=== PATIENT | female | born 1960 | race Caucasian/White ===

== ENCOUNTER 2019-02-15 14:44 | Inpatient (IN) | payer MEDICAID ==
--- NOTE | 2019-02-15 15:16 | EDM.PDOC ---
ED HPI GENERAL MEDICAL PROBLEM - General Chief Complaint: Diabetic Complaint Stated Complaint: BLOOD SUGAR 591 Time Seen by Provider: 02/15/19 15:09 Source of Information: Reports: Patient History Limitations: Reports: No Limitations - History of Present Illness INITIAL COMMENTS - FREE TEXT/NARRATIVE: 58-year-old female presents to the ED after discovering that her blood sugar was 591 when a friend tested her blood sugar. Patient reports that she's been symptomatic with excessive thirst polyuria and polydipsia for the last 3 weeks. She estimates a 10 pound weight loss but is not exactly sure of this. She does feel weak and lightheaded and very fatigued. ABDs does run in her family. She has not had a checkup for about 5 years but when last checked she had no signs of diabetes. Patient has no known heart or lung disorder. He smokes one pack of cigarettes per day. She has noticed some drainage from a dental abscess left frontal incisor tooth that is broken off. This is been draining off off and on for the last 3 weeks as well. She has some sores on her face as well that are slow to heal i.e. impetigo-like. Onset: Gradual Onset Date: 01/25/19 (She estimates polyuria and polydipsia symptoms for at least 3 weeks.) Duration: Week(s): Location: Reports: Generalized (Symptoms of polyuria or polydipsia for about 3 weeks with fatigue and perhaps as much as a 10 pound weight loss.) Quality: Reports: Other (Polyuria polydipsia for at least 3 weeks. Draining dental abscess left upper second incisor tooth which is broken off) Severity: Moderate (.) Improves with: Reports: None Worsens with: Reports: None Context: Reports: Other (Signs and symptoms of diabetes for the last 3 weeks). Denies: Activity, Exercise, Lifting, Sick Contact, Trauma Associated Symptoms: Reports: Malaise, Nausea/Vomiting, Weakness. 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 ED ROS GENERAL - Review of Systems Review Of Systems: See Below Constitutional: Reports: Malaise, Weakness, Fatigue, Weight Loss (She estimates 10 pounds in about 3 weeks.). Denies: Fever, Chills HEENT: Reports: Dental Pain (Draining from a dental abscess left upper second incisor tooth which is broken off even with the gingiva margin.), Glasses Respiratory: Reports: Shortness of Breath, Cough. Denies: Wheezing, Pleuritic Chest Pain (Mild dyspnea at times), Sputum (Occasional nonproductive cough), Hemoptysis Cardiovascular: Reports: Blood Pressure Problem, Dyspnea on Exertion. Denies: Chest Pain, Claudication (Not to her knowledge although blood pressure is very high when she was first seen in the ED at 179/109.), Edema, Lightheadedness, Orthopnea, Palpitations (Occasionally) Endocrine: Reports: Fatigue, High Glucose (High glucose discovered today at a friend's house who has diabetes and a new monitor. Blood sugar was estimated to be 591.) GI/Abdominal: Reports: Nausea (Occasional mild nausea.) : Reports: Frequency Musculoskeletal: Reports: No Symptoms Skin: Reports: Other (Has sores on her chin that or not healing very well. Drinking from a dental abscess left upper incisor tooth.) Neurological: Reports: Dizziness, Weakness. Denies: Headache, Numbness, Paresthesia, Pre-Existing Deficit, Seizure (Generalized weakness), Syncope, Tingling, Tremors, Trouble Speaking, Difficulty Walking, Change in Speech Psychiatric: Reports: No Symptoms Hematologic/Lymphatic: Reports: No Symptoms Immunologic: Reports: No Symptoms ED EXAM GENERAL NO PERIP PULSE - Physical Exam Exam: See Below Exam Limited By: No Limitations General Appearance: Alert, WD/WN, Anxious, Other (Vital signs reveal a resting tachycardia of 1 29/m. Afebrile respiratory rate of 20/m blood pressure markedly elevated at 170 04/26/09. Sats are 97% on room air. She is mildly anxious ) Eye Exam: Bilateral Eye: Normal Fundi, Normal Inspection, PERRL Ears: Normal TMs Throat/Mouth: Other (Tongue is dry and slightly coated whitish in color questionable candidiasis. She has drainage from a broken off left upper middle incisor tooth compatible with dental infection.) Head: Atraumatic, Normocephalic Neck: Normal Inspection, Supple, Non-Tender, Full Range of Motion. No: Lymphadenopathy (R) Respiratory/Chest: No Respiratory Distress, Lungs Clear, Normal Breath Sounds, No Accessory Muscle Use Cardiovascular: Normal Peripheral Pulses, No Murmur, No Rub, Tachycardia GI/Abdominal: Normal Bowel Sounds (Resting tachycardia of 1 25/m on my exam), Soft, Non-Tender, No Organomegaly, No Mass, Pelvis Stable, Other (Mildly obese.) Back Exam: Normal Inspection, Full Range of Motion. No: CVA Tenderness (L), CVA Tenderness (R) Extremities: Normal Inspection, Normal Range of Motion, Non-Tender, No Pedal Edema Neurological: Alert, Oriented, CN II-XII Intact, Normal Cognition, Normal Gait, No Motor/Sensory Deficits Psychiatric: Anxious Skin Exam: Warm, Dry (Mildly anxious), Intact, Normal Color, Other (Impetigo- like rash on both sides of her chin. This may also be due to picking.) EKG INTERPRETATION EKG Date: 02/15/19 Time: 15:40 Rhythm: Other (Sinus tachycardia) Rate (Beats/Min): 125 [place]: LAD-Left [place] Deviation (Mild left axis deviation of -2) P-Wave: Enlarged (Consider left atrial hypertrophy) QRS: Other (Initial poor R-wave progression with slightly diminished voltage in the precordial leads.) ST-T: Other (T-wave inversion aVL and 1 nonspecific finding) QT: Prolonged (QTC is mildly prolonged) EKG Interpretation Comments: Abnormal ECG Course - Vital Signs Last Recorded V/S: Last Vital Signs Temp 36.6 C 02/15/19 15:03 Pulse 129 H 02/15/19 15:03 Resp 20 02/15/19 15:03 BP 179/109 H 02/15/19 15:03 Pulse Ox 97 02/15/19 15:03 - Orders/Labs/Meds Orders: Active Orders 24 hr Category Date Time Status Admission Status [Patient Status] [ADT] Routine ADT 02/15/19 17:09 Active Blood Glucose Check, Bedside [RC] Q1HR Care 02/15/19 15:17 Active EKG Documentation Completion [RC] STAT Care 02/15/19 15:17 Active Chest 1V Frontal [CR] Stat Exams 02/15/19 15:17 Taken C-REACTIVE PROTEIN [CHEM] Stat Lab 02/15/19 15:40 Results COMPREHENSIVE METABOLIC PN,CMP [CHEM] Stat Lab 02/15/19 15:40 Results MAGNESIUM [CHEM] Stat Lab 02/15/19 15:40 Results OSMOLALITY,SERUM [CHEM] Stat Lab 02/15/19 15:40 Results TROPONIN I [CHEM] Stat Lab 02/15/19 15:40 Results Insulin Regular, Human [HumuLIN R] 100 unit Med 02/15/19 16:30 Active Sodium Chloride 0.9% [Normal Saline] 99 ml IV ASDIRECTED Medication Orders Insulin Human Regular 100 unit (/ Sodium Chloride) 100 mls @ 4 mls/hr IV ASDIRECTED INOCENCIA; Protocol Last Infusion: 02/15/19 19:23 Dose: 4 unit/hr, 4 mls/hr Infusion: 02/15/19 18:20 Dose: 2 unit/hr, 2 mls/hr Admin: 02/15/19 16:32 Dose: 4 unit/hr, 4 mls/hr Potassium Chloride/Dextrose/Sod Cl (D5 1/2 Ns W/ 20 Meq/L Kcl) 1,000 mls @ 125 mls/hr IV ASDIRECTED INOCENCIA Last Admin: 02/15/19 19:25 Dose: 125 mls/hr Nicotine (Habitrol) 14 mg TRDERM DAILY [facility] Nicotine Polacrilex (Nicorelief) 2 mg CHEW Q2H PRN PRN Reason: Withdrawal Symptoms Labs: Laboratory Tests 02/15/19 02/15/19 02/15/19 Range/Units 15:40 15:40 15:40 WBC 7.85 (3.98-10.04) K/mm3 RBC 5.72 H (3.98-5.22) M/mm3 Hgb 16.5 H (11.2-15.7) gm/L Hct 47.7 H (34.1-44.9) % MCV 83.4 (79.4-94.8) fl MCH 28.8 (25.6-32.2) pg MCHC 34.6 (32.2-35.5) g/dl RDW Std Deviation 38.9 (36.4-46.3) fL Plt Count 347 (182-369) K/mm3 MPV 10.7 (9.4-12.3) fl Neutrophils % (Manual) 63 H (40-60) % Band Neutrophils % 0 (0-10) % Lymphocytes % (Manual) 30 (20-40) % Atypical Lymphs % 0 % Monocytes % (Manual) 5 (2-10) % Eosinophils % (Manual) 1 (0.7-5.8) % Basophils % (Manual) 1 (0.1-1.2) Platelet Estimate Adequate RBC Morph Comment Normal Sodium 127 L (136-145) mEq/L Potassium 4.7 (3.5-5.1) mEq/L Chloride 90 L (98-107) mEq/L Carbon Dioxide 19 L (21-32) mEq/L Anion Gap 22.7 H (5-15) BUN 15 (7-18) mg/dL Creatinine 1.0 (0.55-1.02) mg/dL Est Cr Clr Drug Dosing 49.68 mL/min Estimated GFR (MDRD) 57 (>60) mL/min BUN/Creatinine Ratio 15.0 (14-18) Glucose 639 H* (74-106) mg/dL Hemoglobin A1c Cancelled Calcium 10.0 (8.5-10.1) mg/dL Magnesium 1.8 (1.8-2.4) mg/dl Total Bilirubin 0.4 (0.2-1.0) mg/dL AST 19 (15-37) U/L ALT 37 (14-59) U/L Alkaline Phosphatase 237 H (46-116) U/L Troponin I < 0.017 (0.00-0.056) ng/mL C-Reactive Protein < 0.2 (<1.0) mg/dL NT-Pro-B Natriuret Pep (0-125) pg/mL Total Protein 7.7 (6.4-8.2) g/dl Albumin 3.6 (3.4-5.0) g/dl Globulin 4.1 gm/dL Albumin/Globulin Ratio 0.9 L (1-2) Ketones (0.0-0.3) mM 02/15/19 02/15/19 02/15/19 Range/Units 15:40 15:40 17:45 WBC (3.98-10.04) K/mm3 RBC (3.98-5.22) M/mm3 Hgb (11.2-15.7) gm/L Hct (34.1-44.9) % MCV (79.4-94.8) fl MCH (25.6-32.2) pg MCHC (32.2-35.5) g/dl RDW Std Deviation (36.4-46.3) fL Plt Count (182-369) K/mm3 MPV (9.4-12.3) fl Neutrophils % (Manual) (40-60) % Band Neutrophils % (0-10) % Lymphocytes % (Manual) (20-40) % Atypical Lymphs % % Monocytes % (Manual) (2-10) % Eosinophils % (Manual) (0.7-5.8) % Basophils % (Manual) (0.1-1.2) Platelet Estimate RBC Morph Comment Sodium (136-145) mEq/L Potassium (3.5-5.1) mEq/L Chloride (98-107) mEq/L Carbon Dioxide (21-32) mEq/L Anion Gap (5-15) BUN (7-18) mg/dL Creatinine (0.55-1.02) mg/dL Est Cr Clr Drug Dosing mL/min Estimated GFR (MDRD) (>60) mL/min BUN/Creatinine Ratio (14-18) Glucose 379 H (74-106) mg/dL Hemoglobin A1c Calcium (8.5-10.1) mg/dL Magnesium (1.8-2.4) mg/dl Total Bilirubin (0.2-1.0) mg/dL AST (15-37) U/L ALT (14-59) U/L Alkaline Phosphatase (46-116) U/L Troponin I (0.00-0.056) ng/mL C-Reactive Protein (<1.0) mg/dL NT-Pro-B Natriuret Pep 39 (0-125) pg/mL Total Protein (6.4-8.2) g/dl Albumin (3.4-5.0) g/dl Globulin gm/dL Albumin/Globulin Ratio (1-2) Ketones 2.74 (0.0-0.3) mM Meds: Medications Generic Name Dose Route Start Last Admin Trade Name Ranjit PRN Reason Stop Dose Admin Insulin Human Regular 100 unit 100 mls @ 4 mls/hr 02/15/19 16:30 02/15/19 19: 23 / Sodium Chloride IV 4 unit/hr ASDIRECTED INOCENCIA 4 mls/hr Infusion Protocol 4 UNIT/HR Potassium Chloride/Dextrose/Sod Cl 1,000 mls @ 125 mls/hr 02/15/19 19:15 19:25 D5 1/2 Ns W/ 20 Meq/L Kcl IV 125 mls/hr ASDIRECTED INOCENCIA Administration Nicotine 14 mg 02/15/19 19:30 Habitrol TRDERM DAILY INOCENCIA Nicotine Polacrilex 2 mg 02/15/19 19:20 Nicorelief CHEW Q2H PRN Withdrawal Symptoms Discontinued Medications Generic Name Dose Route Start Last Admin Trade Name Freella PRN Reason Stop Dose Admin Sodium Chloride 1,000 mls @ 999 mls/hr 02/15/19 15:30 02/15/19 15:45 Normal Saline IV 999 mls/hr ASDIRECTED INOCENCIA Administration Sodium Chloride 1,000 mls @ 999 mls/hr 02/15/19 16:53 02/15/19 16:56 Normal Saline IV 02/15/19 17:53 999 mls/hr ONETIME ONE Administration - Radiology Interpretation Free Text/Narrative:: 58-year-old female presents to the ED for evaluation of a elevated blood sugar obtained by a friend. Patient has had signs and symptoms of diabetes for about 3 weeks with polyuria and polydipsia. Perhaps a 10 pound weight loss. Her friend who is a long-term diabetic checked her sugar this afternoon and found to be 591. Was only checked once. She thus was advised of course to attend the hospital. Clinically she has all the signs and symptoms of diabetes. She also reports it runs in her family on the mother's side. She does have a draining dental abscess of the middle incisor tooth left upper. No fever at this time. She has 2 nonhealing superficial ulcerated skin lesions on her chin compatible with impetigo-like lesions. Plan confirmation of elevated blood sugar. Glycosylated protein. Serum ketones and serum osmolality as well as routine labs. ECG and a chest x-ray as she is a smoker. IV will be normal saline at open for now. Once her sugar is identified to be elevated ,insulin drip will be instituted. - Re-Assessments/Exams Free Text/Narrative Re-Assessment/Exam: 02/15/19 16:20 Hematology is back with a total white count of 7.85. Differential shows 63% neutrophils and no band cells. Hemoglobin is 16.5 hematocrit of 47.7 suggesting mild hemoconcentration. Platelet count 347,000. Nurses got blood sugar greater than 400 at the bedside. I'm going to start the patient on insulin drip at 4 units an hour. 02/15/19 17:02 Chemistry is now back revealing hyponatremia with a sodium of 127. Potassium is 4.7. Chloride is low at 90. Bicarbonate is 19 and a gap is 22.7. BUN is 15 with a creatinine of 1.0. Estimated GFR is 57. Glucose is 639. Hemoglobin A1c is 10.90. Serum osmolality is pending. Calcium is 10.0 with a magnesium of 1.8. Total bilirubin 0.4 AST 19 ALT of 37. Phosphatase 237 I elevated. Troponin I is less than 0.017. C-reactive protein is less than 0.2. Total protein 7.7 with an albumin fraction of 3.6. Serum ketones are elevated at 2.74. Second liter of normal saline has been started at open. Chest x-ray done portably reveals poor inspirational effort. Cardiac silhouette appears to be within normal size and limits. Diffuse mild vascular congestion pattern likely due to portable technique and poor inspirational film. Patient will need to be admitted to the intensive care unit for continued insulin infusion and rehydration due to type 2 diabetes with ketosis. Pineda will be discussed with on- call hospitalist Dr. Yeager with a view to admission to the ICU. 02/15/19 18:18 blood sugar is reportedly down to 349. At the bedside it was greater than 400 and therefore test was done by Lab. Sugar is dropping a bit too fast. Will reduce insulin drip to [address] Yeager is here and arranging admission to the ICU. Departure - Departure Time of Disposition: 19:27 Disposition: Admitted As Inpatient 68 Condition: Fair Clinical Impression: Hyperglycemia Type 2 diabetes mellitus Qualifiers: Diabetes mellitus ferry terminal agent insulin use: without ferry terminal agent use Diabetes mellitus complication status: with skin complications Diabetes mellitus complication detail: with dermatitis Qualified Code(s): E11.620 - Type 2 diabetes mellitus with diabetic dermatitis - Discharge Information *PRESCRIPTION DRUG MONITORING PROGRAM REVIEWED*: Not Applicable *COPY OF PRESCRIPTION DRUG MONITORING REPORT IN PATIENT CLARA: Not Applicable - My Orders Last 24 Hours: My Active Orders 02/15/19 15:17 Blood Glucose Check, Bedside [RC] Q1HR EKG Documentation Completion [RC] STAT Chest 1V Frontal [CR] Stat 02/15/19 15:40 C-REACTIVE PROTEIN [CHEM] Stat COMPREHENSIVE METABOLIC PN,CMP [CHEM] Stat MAGNESIUM [CHEM] Stat OSMOLALITY,SERUM [CHEM] Stat TROPONIN I [CHEM] Stat 02/15/19 16:30 Insulin Regular, Human [HumuLIN R] 100 unit Sodium Chloride 0.9% [Normal Saline] 99 ml IV ASDIRECTED 02/15/19 17:09 Admission Status [Patient Status] [ADT] Routine - Assessment/Plan Last 24 Hours: My Active Orders 02/15/19 15:17 Blood Glucose Check, Bedside [RC] Q1HR EKG Documentation Completion [RC] STAT Chest 1V Frontal [CR] Stat 02/15/19 15:40 C-REACTIVE PROTEIN [CHEM] Stat COMPREHENSIVE METABOLIC PN,CMP [CHEM] Stat MAGNESIUM [CHEM] Stat OSMOLALITY,SERUM [CHEM] Stat TROPONIN I [CHEM] Stat 02/15/19 16:30 Insulin Regular, Human [HumuLIN R] 100 unit Sodium Chloride 0.9% [Normal Saline] 99 ml IV ASDIRECTED 02/15/19 17:09 Admission Status [Patient Status] [ADT] Routine
[2019-02-15] MEDS ORDERED: Sodium Chloride 0.9% 1,000 ML IV SCH (15:30)
[2019-02-15] MEDS ORDERED: Sodium Chloride 0.9% 1,000 ML IV ONE (16:53)
[2019-02-15] MEDS ORDERED: D5 1/2 NS w/ 20 mEq/L KCl 1,000 ML IV SCH (19:15)
[2019-02-15] MEDS ORDERED: Nicotine Polacrilex 2 MG Gum CHEW PRN (19:20)
--- NOTE | 2019-02-15 20:34 | HP ---
DATE OF ADMISSION: 02/15/2019 HISTORY OF PRESENT ILLNESS: The patient is a 58-year-old female who presents to the ER with high blood sugar of 591 and not feeling well. She states that she thought something was wrong for the past few days to weeks because she has been drinking like crazy, and she does not normally do this. She has lost about 10 pounds, and she is voiding all the time, probably 5 to 8 times at night. She states she thought she might be having something going on because she was weak and lightheaded, tired, and just not feeling well. She has not been nauseated or vomiting, but she is actually not even eating that much. She has a suspicion of possibly being diabetic, although she has never been told she has this. She last had a physical 4 years ago and she was said to be normal. She smokes a pack of cigarettes per day. She has had some dental problems including an incisor, which is draining. She has also been unable to get rid of some pimples and sores on her face. She has polyuria and polydipsia for the last 3 weeks. The patient relates no chest pain. Denies any shortness of breath. Denies any chills, rigors, sweats, dysuria, frequency. She has no history of hepatitis. She denies any history of drug use to me, but interestingly does have a history of meth use I am told. The patient relates she smokes a pack of cigarettes per day, has for over 35 years, probably 40 years. PAST MEDICAL HISTORY: Remarkable for tubal ligation. The patient does not follow any specific diet. She does not exercise routinely. She loves her granddaughter whom she helps care for on every other weekend, lives with her son. She is originally from [place]. She is not working for apparently a couple of years, reason why is unknown. She denies any history of hypertension, but was noted to have a very high blood pressure on admission 179/109. She has occasional palpitations she told the ER physician, but denied any recent palpitations with me. She has had occasional nausea as well on report, but denies any currently. She thinks her left upper incisor is abscessed. She has pain with that. She has had no previous TIAs, CVAs, acute MIs, renal failure, liver failure, or other cardiovascular events. Initial blood sugar was found to be 591. Initial EKG showed a left axis deviation, atrial hypertrophy, poor R-wave progression, T-wave inversion in aVL, and mild prolonged QTc. She was found to have a tachycardia about 120. Blood pressure initially 179/109, pulse ox 97. Initial lab was unremarkable other than her blood sugars. Her white count was 7.8, hemoglobin 16.5, hematocrit 47.7, platelet count normal. Sodium was 127, potassium 4.7, CO2 was only 19 with an anion gap elevated at 23, creatinine of 1. GFR was calculated at 57 and her glucose was initially 639. Potassium and magnesium were still normal. Liver function tests are normal. Alkaline phosphatase is elevated 237. Troponin was less than 0.017. CRP was less than 0.2. Protein studies were normal. Ketones were found to be 2+ in urine. The patient was started on an insulin drip per protocol. Her serum ketones did return at 2.7. She was initially started on 250 normal saline, an insulin drip at 8 units/hour, then decreased to 4 units/hour when she hit 300. The patient has been transferred to the unit. Currently, she is feeling comfortable. She was examined in the ER. The patient is almost finished with her second liter of normal saline. Chest x-ray has been reviewed in the meantime and this shows some mild vascular congestion. Blood sugar repeated at 1818 hours was 349. Her insulin drip was decreased further to 2 units/hour. PHYSICAL EXAMINATION: GENERAL: Shows a pleasant female in no obvious distress. Appears moderately obese. She is not sweating or diaphoretic. There is no obvious ketosis. HEENT: Remarkable for carious teeth multiple. Some enlargement of the tongue. Palate is Mallampati 3. Left upper incisor as noted is grayish with broken off fractured point. There is obvious caries to the root level with gum hyperemia. Other teeth are also carious. NECK: Thyroid is slightly enlarged, somewhat asymmetric, lumpy, right side being a little bit larger than the left, but no dominant nodule appreciated. The patient has no tremor. LUNG: Sounds are clear and equal. CARDIAC: Shows normal S1 and S2 without murmur, S3, or S4. There is no hyperdynamic precordium. Carotid pulses are 1+. Femoral pulses 1+. ABDOMEN: Benign for any tenderness. There are active bowel sounds. No scars are noted. She has no CVA tenderness. EXTREMITIES: Unremarkable other than trace edema of the ankles. Reflexes are present. The patient has no obvious pain. On palpation, has minimal arthritic findings of shoulders and knees. NEUROLOGIC: Grossly intact. The patient is clearly oriented. She is able to answer questions. The patient states that again she suspected she was becoming diabetic. She denies any previous cardiovascular symptoms, any previous strokes, pulmonary emboli, DVT. She denies any previous episodes of diabetes, but states her mother and her grandmother were also type 2 diabetics. Her mom progressed rapidly to insulin after about 6 months. She was diagnosed in her 50s. This is why she thought she would become diabetic. The patient would like to quit smoking and so we have discussed the patch and this is certainly agreeable. We will also provide government counseling. The patient's motivations are for own health, not to be a burden on her son, improve her health, and also to improve her health because of her granddaughter. EKG was over-read with Dr. Lacy's interpretation being entirely spot on. ASSESSMENT: A 58-year-old female presenting in: 1. Diabetic ketoacidosis. 2. History of carious teeth. This may be contributing. 3. Extreme hypertension on presentation, now improved. 4. Obvious metabolic acidosis with increased anion gap suggesting ketosis as a cause. 5. Abnormalities on EKG suggesting possible coronary artery disease with left axis deviation, left atrial enlargement, and nonspecific ST-T wave changes. Negative troponin on presentation. PLAN: The patient will be admitted for insulin drip therapy per protocol to the ICU. We will continue to monitor for any causative triggers. She has had her blood culture drawn. The patient will need to see dentist at some point, as I am unclear as to whether this could be causing problems. Consider antibiotic treatment of her abscessed incisor, although it is not causing her severe pain and is not obviously purulent at this point. It is hyperemic chronic gums and it does appear to be a bad cavity, possibly abscess. Her focus will initially be on treating the diabetes. She will be started on insulin drip protocol and she has already come down significantly and we will start to transition her toward bolus insulin. Diabetic Education will be consulted. Nutritionists will be consulted. Physical Therapy and OT will be consulted. Nicotine patch applied per patient request for smoking cessation assistance. Contact smoking cessation nurse. MMODAL /[phone]
[2019-02-15] MEDS: Nicotine 14 MG/24 Hr Patch TRDERM SCH (21:03)
[2019-02-15] MEDS: Enoxaparin 40 MG/0.4 ML Syringe SUBCUT SCH (22:10)
[2019-02-15] MEDS: Potassium Chloride 10 MEQ in Premix Bag 1 BAG IV SCH ×2 (22:11→23:12)
[2019-02-15] MEDS: Losartan 100 MG Tab PO SCH (22:11)
[2019-02-16] MEDS: Potassium Chloride 10 MEQ in Premix Bag 1 BAG IV SCH ×2 (00:12→01:18)
[2019-02-16] MEDS ORDERED: Insulin Glarg,Human.Rec.Analog 100 UNIT/ML ML SUBCUT ONE (00:20)
[2019-02-16] MEDS ORDERED: Sodium Chloride 0.9% 1,000 ML IV SCH (00:20)
[2019-02-16] MEDS ORDERED: Insulin Lispro 100 Units/ML 3 ML Vial SUBCUT ONE ×2 (02:00)
[2019-02-16 04:36] LABS: HEMOGLOBIN A1C 12.5 % (4.50-6.20)
[2019-02-16] MEDS ORDERED: Magnesium Sulfate/Water 4 GM in Premix Bag 1 BAG IV ONE (07:49)
[2019-02-16] MEDS: metFORMIN 500 MG Tab PO SCH ×2 (07:53→16:41)
[2019-02-16] MEDS: Insulin Lispro 100 Units/ML 3 ML Vial SUBCUT SCH ×5 (07:55→21:34)
[2019-02-16] MEDS: Losartan 100 MG Tab PO SCH ×2 (07:57→08:12)
[2019-02-16] MEDS: Enoxaparin 40 MG/0.4 ML Syringe SUBCUT SCH (08:02)
[2019-02-16] MEDS: Nicotine 14 MG/24 Hr Patch TRDERM SCH (08:07)
--- NOTE | 2019-02-16 11:18 | CR ---
Chest: Portable view of the chest was obtained. Comparison: No prior chest x-ray. Heart size and mediastinum are normal. Lungs are clear. Bony structures are grossly intact. Impression: 1. Nothing acute is seen on portable chest x-ray. Diagnostic code #1
--- NOTE | 2019-02-16 13:47 | PCM.PN ---
- General Info Date of Service: 02/16/19 Admission Dx/Problem (Free Text): patient states that she is feeling much better. Insulin drip was stopped last night and she was given subcutaneous Lantus. Patient is doing well taking orally now. She started Glucophage 500 mg 1 tab twice a day. She continues on sliding scale. Functional Status: Reports: Pain Controlled - Review of Systems General: Reports: No Symptoms HEENT: Reports: No Symptoms Pulmonary: Reports: No Symptoms Cardiovascular: Reports: No Symptoms Genitourinary: Denies: Dysuria, Frequency - Patient Data Vitals - Most Recent: Last Vital Signs Temp 97.5 F 02/16/19 11:43 Pulse 98 02/16/19 07:54 Resp 16 02/16/19 11:43 BP 134/81 02/16/19 11:43 Pulse Ox 95 02/16/19 11:43 Weight - Most Recent: 164 lb 11.212 oz I&O - Last 24 Hours: Intake & Output 02/15/19 02/16/19 02/16/19 22:59 06:59 14:59 Intake Total 120 1431 490 Output Total 035 508 9900 Balance -80 631 -1210 Lab Results Last 24 Hours: Laboratory Results - last 24 hr 02/15/19 02/15/19 02/15/19 Range/Units 15:40 15:40 15:40 WBC 7.85 (3.98-10.04) K/mm3 RBC 5.72 H (3.98-5.22) M/mm3 Hgb 16.5 H (11.2-15.7) gm/L Hct 47.7 H (34.1-44.9) % MCV 83.4 (79.4-94.8) fl MCH 28.8 (25.6-32.2) pg MCHC 34.6 (32.2-35.5) g/dl RDW Std Deviation 38.9 (36.4-46.3) fL Plt Count 347 (182-369) K/mm3 MPV 10.7 (9.4-12.3) fl Neutrophils % (Manual) 63 H (40-60) % Band Neutrophils % 0 (0-10) % Lymphocytes % (Manual) 30 (20-40) % Atypical Lymphs % 0 % Monocytes % (Manual) 5 (2-10) % Eosinophils % (Manual) 1 (0.7-5.8) % Basophils % (Manual) 1 (0.1-1.2) Platelet Estimate Adequate RBC Morph Comment Normal Sodium 127 L (136-145) mEq/L Potassium 4.7 (3.5-5.1) mEq/L Chloride 90 L (98-107) mEq/L Carbon Dioxide 19 L (21-32) mEq/L Anion Gap 22.7 H (5-15) BUN 15 (7-18) mg/dL Creatinine 1.0 (0.55-1.02) mg/dL Est Cr Clr Drug Dosing 49.68 mL/min Estimated GFR (MDRD) 57 (>60) mL/min BUN/Creatinine Ratio 15.0 (14-18) Glucose 639 H* (74-106) mg/dL POC Glucose (70-105) mg/dL Hemoglobin A1c Cancelled Serum Osmolality 307 H (280-300) mosm/kg Calcium 10.0 (8.5-10.1) mg/dL Magnesium 1.8 (1.8-2.4) mg/dl Total Bilirubin 0.4 (0.2-1.0) mg/dL AST 19 (15-37) U/L ALT 37 (14-59) U/L Alkaline Phosphatase 237 H (46-116) U/L Troponin I < 0.017 (0.00-0.056) ng/mL C-Reactive Protein < 0.2 (<1.0) mg/dL NT-Pro-B Natriuret Pep (0-125) pg/mL Total Protein 7.7 (6.4-8.2) g/dl Albumin 3.6 (3.4-5.0) g/dl Globulin 4.1 gm/dL Albumin/Globulin Ratio 0.9 L (1-2) TSH 3rd Generation (0.358-3.74) uIU/mL Urine Color (Yellow) Urine Appearance (Clear) Urine pH (5.0-8.0) Ur Specific [place] (1.005-1.030) Urine Protein (Negative) Urine Glucose (UA) (Negative) Urine Ketones (Negative) Urine Occult Blood (Negative) Urine Nitrite (Negative) Urine Bilirubin (Negative) Urine Urobilinogen (0.2-1.0) Ur Leukocyte Esterase (Negative) Urine RBC (0-5) /hpf Urine WBC (0-5) /hpf Ur Squamous Epith Cells (0-5) /hpf Urine Bacteria (FEW) /hpf Urine Mucus (FEW) /hpf Urine Yeast (Budding) (NOT SEEN) Ketones (0.0-0.3) mM 02/15/19 02/15/19 02/15/19 Range/Units 15:40 15:40 16:00 WBC (3.98-10.04) K/mm3 RBC (3.98-5.22) M/mm3 Hgb (11.2-15.7) gm/L Hct (34.1-44.9) % MCV (79.4-94.8) fl MCH (25.6-32.2) pg MCHC (32.2-35.5) g/dl RDW Std Deviation (36.4-46.3) fL Plt Count (182-369) K/mm3 MPV (9.4-12.3) fl Neutrophils % (Manual) (40-60) % Band Neutrophils % (0-10) % Lymphocytes % (Manual) (20-40) % Atypical Lymphs % % Monocytes % (Manual) (2-10) % Eosinophils % (Manual) (0.7-5.8) % Basophils % (Manual) (0.1-1.2) Platelet Estimate RBC Morph Comment Sodium (136-145) mEq/L Potassium (3.5-5.1) mEq/L Chloride (98-107) mEq/L Carbon Dioxide (21-32) mEq/L Anion Gap (5-15) BUN (7-18) mg/dL Creatinine (0.55-1.02) mg/dL Est Cr Clr Drug Dosing mL/min Estimated GFR (MDRD) (>60) mL/min BUN/Creatinine Ratio (14-18) Glucose (74-106) mg/dL POC Glucose (70-105) mg/dL Hemoglobin A1c Serum Osmolality (280-300) mosm/kg Calcium (8.5-10.1) mg/dL Magnesium (1.8-2.4) mg/dl Total Bilirubin (0.2-1.0) mg/dL AST (15-37) U/L ALT (14-59) U/L Alkaline Phosphatase (46-116) U/L Troponin I (0.00-0.056) ng/mL C-Reactive Protein (<1.0) mg/dL NT-Pro-B Natriuret Pep 39 (0-125) pg/mL Total Protein (6.4-8.2) g/dl Albumin (3.4-5.0) g/dl Globulin gm/dL Albumin/Globulin Ratio (1-2) TSH 3rd Generation (0.358-3.74) uIU/mL Urine Color Light yellow (Yellow) Urine Appearance Clear (Clear) Urine pH 5.5 (5.0-8.0) Ur Specific [place] 1.010 (1.005-1.030) Urine Protein Negative (Negative) Urine Glucose (UA) 2+ H (Negative) Urine Ketones 2+ H (Negative) Urine Occult Blood Trace-lysed H (Negative) Urine Nitrite Negative (Negative) Urine Bilirubin Negative (Negative) Urine Urobilinogen 0.2 (0.2-1.0) Ur Leukocyte Esterase Negative (Negative) Urine RBC 0-5 (0-5) /hpf Urine WBC 0-5 (0-5) /hpf Ur Squamous Epith Cells 0-5 (0-5) /hpf Urine Bacteria Few (FEW) /hpf Urine Mucus Rare (FEW) /hpf Urine Yeast (Budding) Few H (NOT SEEN) Ketones 2.74 (0.0-0.3) mM 02/15/19 02/15/19 02/15/19 Range/Units 17:45 18:17 19:19 WBC (3.98-10.04) K/mm3 RBC (3.98-5.22) M/mm3 Hgb (11.2-15.7) gm/L Hct (34.1-44.9) % MCV (79.4-94.8) fl MCH (25.6-32.2) pg MCHC (32.2-35.5) g/dl RDW Std Deviation (36.4-46.3) fL Plt Count (182-369) K/mm3 MPV (9.4-12.3) fl Neutrophils % (Manual) (40-60) % Band Neutrophils % (0-10) % Lymphocytes % (Manual) (20-40) % Atypical Lymphs % % Monocytes % (Manual) (2-10) % Eosinophils % (Manual) (0.7-5.8) % Basophils % (Manual) (0.1-1.2) Platelet Estimate RBC Morph Comment Sodium (136-145) mEq/L Potassium (3.5-5.1) mEq/L Chloride (98-107) mEq/L Carbon Dioxide (21-32) mEq/L Anion Gap (5-15) BUN (7-18) mg/dL Creatinine (0.55-1.02) mg/dL Est Cr Clr Drug Dosing mL/min Estimated GFR (MDRD) (>60) mL/min BUN/Creatinine Ratio (14-18) Glucose 379 H (74-106) mg/dL POC Glucose 349 H 332 H (70-105) mg/dL Hemoglobin A1c Serum Osmolality (280-300) mosm/kg Calcium (8.5-10.1) mg/dL Magnesium (1.8-2.4) mg/dl Total Bilirubin (0.2-1.0) mg/dL AST (15-37) U/L ALT (14-59) U/L Alkaline Phosphatase (46-116) U/L Troponin I (0.00-0.056) ng/mL C-Reactive Protein (<1.0) mg/dL NT-Pro-B Natriuret Pep (0-125) pg/mL Total Protein (6.4-8.2) g/dl Albumin (3.4-5.0) g/dl Globulin gm/dL Albumin/Globulin Ratio (1-2) TSH 3rd Generation (0.358-3.74) uIU/mL Urine Color (Yellow) Urine Appearance (Clear) Urine pH (5.0-8.0) Ur Specific [place] (1.005-1.030) Urine Protein (Negative) Urine Glucose (UA) (Negative) Urine Ketones (Negative) Urine Occult Blood (Negative) Urine Nitrite (Negative) Urine Bilirubin (Negative) Urine Urobilinogen (0.2-1.0) Ur Leukocyte Esterase (Negative) Urine RBC (0-5) /hpf Urine WBC (0-5) /hpf Ur Squamous Epith Cells (0-5) /hpf Urine Bacteria (FEW) /hpf Urine Mucus (FEW) /hpf Urine Yeast (Budding) (NOT SEEN) Ketones (0.0-0.3) mM 02/15/19 02/15/19 02/15/19 Range/Units 20:07 20:21 21:16 WBC (3.98-10.04) K/mm3 RBC (3.98-5.22) M/mm3 Hgb (11.2-15.7) gm/L Hct (34.1-44.9) % MCV (79.4-94.8) fl MCH (25.6-32.2) pg MCHC (32.2-35.5) g/dl RDW Std Deviation (36.4-46.3) fL Plt Count (182-369) K/mm3 MPV (9.4-12.3) fl Neutrophils % (Manual) (40-60) % Band Neutrophils % (0-10) % Lymphocytes % (Manual) (20-40) % Atypical Lymphs % % Monocytes % (Manual) (2-10) % Eosinophils % (Manual) (0.7-5.8) % Basophils % (Manual) (0.1-1.2) Platelet Estimate RBC Morph Comment Sodium 134 L (136-145) mEq/L Potassium 3.9 (3.5-5.1) mEq/L Chloride 101 (98-107) mEq/L Carbon Dioxide 22 (21-32) mEq/L Anion Gap 14.9 (5-15) BUN 11 (7-18) mg/dL Creatinine 0.6 (0.55-1.02) mg/dL Est Cr Clr Drug Dosing 82.80 mL/min Estimated GFR (MDRD) > 60 (>60) mL/min BUN/Creatinine Ratio 18.3 H (14-18) Glucose 296 H (74-106) mg/dL POC Glucose 289 H 258 H (70-105) mg/dL Hemoglobin A1c Serum Osmolality (280-300) mosm/kg Calcium 8.5 D (8.5-10.1) mg/dL Magnesium (1.8-2.4) mg/dl Total Bilirubin (0.2-1.0) mg/dL AST (15-37) U/L ALT (14-59) U/L Alkaline Phosphatase (46-116) U/L Troponin I (0.00-0.056) ng/mL C-Reactive Protein (<1.0) mg/dL NT-Pro-B Natriuret Pep (0-125) pg/mL Total Protein (6.4-8.2) g/dl Albumin (3.4-5.0) g/dl Globulin gm/dL Albumin/Globulin Ratio (1-2) TSH 3rd Generation 2.380 (0.358-3.74) uIU/mL Urine Color (Yellow) Urine Appearance (Clear) Urine pH (5.0-8.0) Ur Specific [place] (1.005-1.030) Urine Protein (Negative) Urine Glucose (UA) (Negative) Urine Ketones (Negative) Urine Occult Blood (Negative) Urine Nitrite (Negative) Urine Bilirubin (Negative) Urine Urobilinogen (0.2-1.0) Ur Leukocyte Esterase (Negative) Urine RBC (0-5) /hpf Urine WBC (0-5) /hpf Ur Squamous Epith Cells (0-5) /hpf Urine Bacteria (FEW) /hpf Urine Mucus (FEW) /hpf Urine Yeast (Budding) (NOT SEEN) Ketones (0.0-0.3) mM 02/15/19 02/15/19 02/15/19 Range/Units 22:19 23:11 23:52 WBC (3.98-10.04) K/mm3 RBC (3.98-5.22) M/mm3 Hgb (11.2-15.7) gm/L Hct (34.1-44.9) % MCV (79.4-94.8) fl MCH (25.6-32.2) pg MCHC (32.2-35.5) g/dl RDW Std Deviation (36.4-46.3) fL Plt Count (182-369) K/mm3 MPV (9.4-12.3) fl Neutrophils % (Manual) (40-60) % Band Neutrophils % (0-10) % Lymphocytes % (Manual) (20-40) % Atypical Lymphs % % Monocytes % (Manual) (2-10) % Eosinophils % (Manual) (0.7-5.8) % Basophils % (Manual) (0.1-1.2) Platelet Estimate RBC Morph Comment Sodium (136-145) mEq/L Potassium (3.5-5.1) mEq/L Chloride (98-107) mEq/L Carbon Dioxide (21-32) mEq/L Anion Gap (5-15) BUN (7-18) mg/dL Creatinine (0.55-1.02) mg/dL Est Cr Clr Drug Dosing mL/min Estimated GFR (MDRD) (>60) mL/min BUN/Creatinine Ratio (14-18) Glucose (74-106) mg/dL POC Glucose 256 H 254 H 220 H (70-105) mg/dL Hemoglobin A1c Serum Osmolality (280-300) mosm/kg Calcium (8.5-10.1) mg/dL Magnesium (1.8-2.4) mg/dl Total Bilirubin (0.2-1.0) mg/dL AST (15-37) U/L ALT (14-59) U/L Alkaline Phosphatase (46-116) U/L Troponin I (0.00-0.056) ng/mL C-Reactive Protein (<1.0) mg/dL NT-Pro-B Natriuret Pep (0-125) pg/mL Total Protein (6.4-8.2) g/dl Albumin (3.4-5.0) g/dl Globulin gm/dL Albumin/Globulin Ratio (1-2) TSH 3rd Generation (0.358-3.74) uIU/mL Urine Color (Yellow) Urine Appearance (Clear) Urine pH (5.0-8.0) Ur Specific [place] (1.005-1.030) Urine Protein (Negative) Urine Glucose (UA) (Negative) Urine Ketones (Negative) Urine Occult Blood (Negative) Urine Nitrite (Negative) Urine Bilirubin (Negative) Urine Urobilinogen (0.2-1.0) Ur Leukocyte Esterase (Negative) Urine RBC (0-5) /hpf Urine WBC (0-5) /hpf Ur Squamous Epith Cells (0-5) /hpf Urine Bacteria (FEW) /hpf Urine Mucus (FEW) /hpf Urine Yeast (Budding) (NOT SEEN) Ketones (0.0-0.3) mM 02/15/19 02/16/19 02/16/19 Range/Units 23:55 02:07 04:00 WBC (3.98-10.04) K/mm3 RBC (3.98-5.22) M/mm3 Hgb (11.2-15.7) gm/L Hct (34.1-44.9) % MCV (79.4-94.8) fl MCH (25.6-32.2) pg MCHC (32.2-35.5) g/dl RDW Std Deviation (36.4-46.3) fL Plt Count (182-369) K/mm3 MPV (9.4-12.3) fl Neutrophils % (Manual) (40-60) % Band Neutrophils % (0-10) % Lymphocytes % (Manual) (20-40) % Atypical Lymphs % % Monocytes % (Manual) (2-10) % Eosinophils % (Manual) (0.7-5.8) % Basophils % (Manual) (0.1-1.2) Platelet Estimate RBC Morph Comment Sodium 135 L 136 (136-145) mEq/L Potassium 3.9 4.0 (3.5-5.1) mEq/L Chloride 103 104 (98-107) mEq/L Carbon Dioxide 22 21 (21-32) mEq/L Anion Gap 13.9 15.0 (5-15) BUN 10 9 (7-18) mg/dL Creatinine 0.6 0.6 (0.55-1.02) mg/dL Est Cr Clr Drug Dosing 82.80 82.80 mL/min Estimated GFR (MDRD) > 60 > 60 (>60) mL/min BUN/Creatinine Ratio 16.7 15.0 (14-18) Glucose 228 H 240 H (74-106) mg/dL POC Glucose 265 H (70-105) mg/dL Hemoglobin A1c Serum Osmolality (280-300) mosm/kg Calcium 8.1 L 8.1 L (8.5-10.1) mg/dL Magnesium 1.5 L (1.8-2.4) mg/dl Total Bilirubin (0.2-1.0) mg/dL AST (15-37) U/L ALT (14-59) U/L Alkaline Phosphatase (46-116) U/L Troponin I < 0.017 (0.00-0.056) ng/mL C-Reactive Protein (<1.0) mg/dL NT-Pro-B Natriuret Pep (0-125) pg/mL Total Protein (6.4-8.2) g/dl Albumin (3.4-5.0) g/dl Globulin gm/dL Albumin/Globulin Ratio (1-2) TSH 3rd Generation (0.358-3.74) uIU/mL Urine Color (Yellow) Urine Appearance (Clear) Urine pH (5.0-8.0) Ur Specific [place] (1.005-1.030) Urine Protein (Negative) Urine Glucose (UA) (Negative) Urine Ketones (Negative) Urine Occult Blood (Negative) Urine Nitrite (Negative) Urine Bilirubin (Negative) Urine Urobilinogen (0.2-1.0) Ur Leukocyte Esterase (Negative) Urine RBC (0-5) /hpf Urine WBC (0-5) /hpf Ur Squamous Epith Cells (0-5) /hpf Urine Bacteria (FEW) /hpf Urine Mucus (FEW) /hpf Urine Yeast (Budding) (NOT SEEN) Ketones (0.0-0.3) mM 02/16/19 02/16/19 02/16/19 Range/Units 04:00 05:38 06:35 WBC (3.98-10.04) K/mm3 RBC (3.98-5.22) M/mm3 Hgb (11.2-15.7) gm/L Hct (34.1-44.9) % MCV (79.4-94.8) fl MCH (25.6-32.2) pg MCHC (32.2-35.5) g/dl RDW Std Deviation (36.4-46.3) fL Plt Count (182-369) K/mm3 MPV (9.4-12.3) fl Neutrophils % (Manual) (40-60) % Band Neutrophils % (0-10) % Lymphocytes % (Manual) (20-40) % Atypical Lymphs % % Monocytes % (Manual) (2-10) % Eosinophils % (Manual) (0.7-5.8) % Basophils % (Manual) (0.1-1.2) Platelet Estimate RBC Morph Comment Sodium (136-145) mEq/L Potassium (3.5-5.1) mEq/L Chloride (98-107) mEq/L Carbon Dioxide (21-32) mEq/L Anion Gap (5-15) BUN (7-18) mg/dL Creatinine (0.55-1.02) mg/dL Est Cr Clr Drug Dosing mL/min Estimated GFR (MDRD) (>60) mL/min BUN/Creatinine Ratio (14-18) Glucose (74-106) mg/dL POC Glucose 219 H (70-105) mg/dL Hemoglobin A1c 12.50 H Serum Osmolality (280-300) mosm/kg Calcium (8.5-10.1) mg/dL Magnesium (1.8-2.4) mg/dl Total Bilirubin (0.2-1.0) mg/dL AST (15-37) U/L ALT (14-59) U/L Alkaline Phosphatase (46-116) U/L Troponin I (0.00-0.056) ng/mL C-Reactive Protein (<1.0) mg/dL NT-Pro-B Natriuret Pep (0-125) pg/mL Total Protein (6.4-8.2) g/dl Albumin (3.4-5.0) g/dl Globulin gm/dL Albumin/Globulin Ratio (1-2) TSH 3rd Generation (0.358-3.74) uIU/mL Urine Color Light yellow (Yellow) Urine Appearance Clear (Clear) Urine pH 6.0 (5.0-8.0) Ur Specific [place] 1.015 (1.005-1.030) Urine Protein Negative (Negative) Urine Glucose (UA) Trace H (Negative) Urine Ketones Trace H (Negative) Urine Occult Blood Trace-lysed H (Negative) Urine Nitrite Negative (Negative) Urine Bilirubin Negative (Negative) Urine Urobilinogen 0.2 (0.2-1.0) Ur Leukocyte Esterase 3+ H (Negative) Urine RBC 0-5 (0-5) /hpf Urine WBC 0-5 (0-5) /hpf Ur Squamous Epith Cells Not seen (0-5) /hpf Urine Bacteria Few (FEW) /hpf Urine Mucus Few (FEW) /hpf Urine Yeast (Budding) (NOT SEEN) Ketones (0.0-0.3) mM // Range/Units 11:13 WBC (3.98-10.04) K/mm3 RBC (3.98-5.22) M/mm3 Hgb (11.2-15.7) gm/L Hct (34.1-44.9) % MCV (79.4-94.8) fl MCH (25.6-32.2) pg MCHC (32.2-35.5) g/dl RDW Std Deviation (36.4-46.3) fL Plt Count (182-369) K/mm3 MPV (9.4-12.3) fl Neutrophils % (Manual) (40-60) % Band Neutrophils % (0-10) % Lymphocytes % (Manual) (20-40) % Atypical Lymphs % % Monocytes % (Manual) (2-10) % Eosinophils % (Manual) (0.7-5.8) % Basophils % (Manual) (0.1-1.2) Platelet Estimate RBC Morph Comment Sodium (136-145) mEq/L Potassium (3.5-5.1) mEq/L Chloride (98-107) mEq/L Carbon Dioxide (21-32) mEq/L Anion Gap (5-15) BUN (7-18) mg/dL Creatinine (0.55-1.02) mg/dL Est Cr Clr Drug Dosing mL/min Estimated GFR (MDRD) (>60) mL/min BUN/Creatinine Ratio (14-18) Glucose (74-106) mg/dL POC Glucose 361 H (70-105) mg/dL Hemoglobin A1c Serum Osmolality (280-300) mosm/kg Calcium (8.5-10.1) mg/dL Magnesium (1.8-2.4) mg/dl Total Bilirubin (0.2-1.0) mg/dL AST (15-37) U/L ALT (14-59) U/L Alkaline Phosphatase (46-116) U/L Troponin I (0.00-0.056) ng/mL C-Reactive Protein (<1.0) mg/dL NT-Pro-B Natriuret Pep (0-125) pg/mL Total Protein (6.4-8.2) g/dl Albumin (3.4-5.0) g/dl Globulin gm/dL Albumin/Globulin Ratio (1-2) TSH 3rd Generation (0.358-3.74) uIU/mL Urine Color (Yellow) Urine Appearance (Clear) Urine pH (5.0-8.0) Ur Specific [place] (1.005-1.030) Urine Protein (Negative) Urine Glucose (UA) (Negative) Urine Ketones (Negative) Urine Occult Blood (Negative) Urine Nitrite (Negative) Urine Bilirubin (Negative) Urine Urobilinogen (0.2-1.0) Ur Leukocyte Esterase (Negative) Urine RBC (0-5) /hpf Urine WBC (0-5) /hpf Ur Squamous Epith Cells (0-5) /hpf Urine Bacteria (FEW) /hpf Urine Mucus (FEW) /hpf Urine Yeast (Budding) (NOT SEEN) Ketones (0.0-0.3) mM Med Orders - Current: Current Medications Enoxaparin Sodium (Lovenox) 40 mg SUBCUT DAILY [facility] Last Admin: 02/16/19 08:02 Dose: 40 mg Insulin Human Regular 100 unit (/ Sodium Chloride) 100 mls @ 4 mls/hr IV ASDIRECTED [facility]; Protocol Last Infusion: 02/15/19 20:22 Dose: 3 unit/hr, 3 mls/hr Insulin Glargine (Lantus) 15 unit SUBCUT Q24H [facility] Insulin Human Lispro (Humalog) 0 unit SUBCUT QIDACANDBED [facility]; Protocol Last Admin: 02/16/19 11:14 Dose: 10 units Losartan Potassium (Cozaar) 100 mg PO DAILY [facility] Last Admin: 02/16/19 08:12 Dose: Not Given Metformin HCl (Glucophage) 500 mg PO BIDMEALS [facility] Last Admin: 02/16/19 07:53 Dose: 500 mg Miscellaneous Information (Remove Patch) 1 ea TRDERM DAILY [facility] Last Admin: 02/16/19 08:13 Dose: Not Given Nicotine (Habitrol) 14 mg TRDERM DAILY [facility] Last Admin: 02/16/19 08:07 Dose: 14 mg Nicotine Polacrilex (Nicorelief) 2 mg CHEW Q2H PRN PRN Reason: Withdrawal Symptoms Pneumococcal Polyvalent Vaccine (Pneumovax 23) 0.5 ml IM .ONCE ONE Stop: 02/17/19 09:01 Discontinued Medications Sodium Chloride (Normal Saline) 1,000 mls @ 999 mls/hr IV ASDIRECTED [facility] Last Admin: 02/15/19 15:45 Dose: 999 mls/hr Sodium Chloride (Normal Saline) 1,000 mls @ 999 mls/hr IV ONETIME ONE Stop: 02/15/19 17:53 Last Admin: 02/15/19 16:56 Dose: 999 mls/hr Potassium Chloride/Dextrose/Sod Cl (D5 1/2 Ns W/ 20 Meq/L Kcl) 1,000 mls @ 125 mls/hr IV ASDIRECTED [facility] Last Admin: 02/15/19 19:25 Dose: 125 mls/hr Potassium Chloride 10 meq/ (Premix) 100 mls @ 100 mls/hr IV Q1H [facility] Stop: 02/16/19 01:59 Last Admin: 02/16/19 01:18 Dose: 100 mls/hr Sodium Chloride (Normal Saline) 1,000 mls @ 50 mls/hr IV ASDIRECTED [facility] Last Admin: 02/16/19 00:18 Dose: 50 mls/hr Magnesium Sulfate 4 gm/ Premix 50 mls @ 12.5 mls/hr IV ONETIME ONE Stop: 02/16/19 11:48 Last Admin: 02/16/19 08:08 Dose: 12.5 mls/hr Insulin Glargine (Lantus) 0 unit SUBCUT ONETIME ONE Stop: 02/16/19 00:21 Last Admin: 02/16/19 00:19 Dose: 30 units Insulin Human Lispro (Humalog) 0 unit SUBCUT ONETIME ONE; Protocol Stop: 02/16/19 00:01 Last Admin: 02/16/19 00:34 Dose: Not Given Insulin Human Lispro (Humalog) 0 unit SUBCUT ONETIME ONE; Protocol Stop: 02/16/19 02:01 Last Admin: 02/16/19 02:26 Dose: 6 units - Exam Quality Assessment: No: Supplemental Oxygen General: Alert, Oriented HEENT: Pupils Equal, Pupils Reactive Neck: Supple Lungs: Clear to Auscultation, Normal Respiratory Effort Cardiovascular: Regular Rate, Regular Rhythm GI/Abdominal Exam: Normal Bowel Sounds, Soft, Non-Tender Extremities: Normal Inspection, Normal Range of Motion, Non-Tender, No Pedal Edema Skin: Warm, Dry, Intact Psy/Mental Status: Alert, Normal Affect, Normal Mood - Problem List & Annotations (1) DKA, type 2 SNOMED Code(s): 786436356, 919236210 Code(s): E11.10 - TYPE 2 DIABETES MELLITUS WITH KETOACIDOSIS WITHOUT COMA Status: Acute Current Visit: Yes (2) Hypomagnesemia SNOMED Code(s): 118338523 Code(s): E83.42 - HYPOMAGNESEMIA Status: Acute Current Visit: Yes (3) Elevated blood pressure reading without diagnosis of hypertension SNOMED Code(s): 461671408 Code(s): R03.0 - ELEVATED BLOOD-PRESSURE READING, W/O DIAGNOSIS OF HTN Status: Acute Current Visit: Yes - Problem List Review Problem List Initiated/Reviewed/Updated: Yes - My Orders Last 24 Hours: My Active Orders 02/16/19 08:53 Consult to Paper Sealer [Consult to Diabetic Nurse Specialist] [CONS] Routine 02/16/19 10:44 Up ad Bernadine [RC] ASDIRECTED 02/16/19 13:36 MICROALBUMIN/CREAT RATIO,URINE [URCHEM] Routine 02/16/19 22:00 Insulin Glarg,Human.Rec.Analog [LantUS] 15 unit SUBCUT Q24H 02/17/19 05:11 CBC WITH AUTO DIFF [HEME] AM CMP [COMPREHENSIVE METABOLIC PN,CMP] [CHEM] AM LIPID PANEL [CHEM] AM MAGNESIUM [CHEM] AM - Assessment Assessment:: 58-year-old female with no history of diabetes presenting to the emergency room in DKA. DKA resolved with fluids and insulin drip. Now on oral Glucophage and Lantus subcutaneously. Blood pressure is elevated and we'll continue to monitor Magnesium low at 1.6 - Plan Plan:: diabetic education Lantus 15 units subcutaneous daily at bedtime sliding scale insulin consider mealtime prandial insulin based on blood sugars over the next day. Fingerstick blood sugars 4 times a day Continue on Glucophage 500 mg twice a day until discharge transfer to [facility] Follow labs in the morning Plan discharge tomorrow morning.
[2019-02-16] MEDS ORDERED: Insulin Glarg,Human.Rec.Analog 100 UNIT/ML ML SUBCUT SCH (22:00)
[2019-02-17] MEDS ORDERED: Insulin Lispro 100 UNIT/ML 10 ML VIAL SUBCUT SCH
[2019-02-17] MEDS ORDERED: metFORMIN 500 MG Tab PO SCH
[2019-02-17] MEDS: Insulin Lispro 100 Units/ML 3 ML Vial SUBCUT SCH ×4 (08:09→11:24)
[2019-02-17] MEDS: metFORMIN 500 MG Tab PO SCH (08:10)
[2019-02-17] MEDS: Losartan 100 MG Tab PO SCH (08:10)
[2019-02-17] MEDS: Enoxaparin 40 MG/0.4 ML Syringe SUBCUT SCH (08:12)
[2019-02-17] MEDS: Nicotine 14 MG/24 Hr Patch TRDERM SCH (08:14)
[2019-02-17] MEDS ORDERED: Pneumococcal Polyvalent-23 Vaccine 0.5 ML SDV IM ONE (09:00)
--- NOTE | 2019-02-17 11:50 | PCM.DCSUM1 ---
Discharge Summary - Hospital Course HPI Initial Comments: 58-year-old female who presented to the emergency room with a two-week history of general malaise, weakness, lightheadedness, and a 10 pound weight loss. She states that she has had polyuria and polydipsia with getting up at least 5-8 times per night. She has a family history of diabetes and she had some suspicion of being a diabetic. She used a friend's glucometer and her blood sugars were over 700. Patient does state that she has used meth and marijuana in the past. Brief History: Patient was admitted to the hospital with diabetic ketoacidosis. IV insulin was used to bring her blood sugars down and to correct her ketosis and acidosis. She did well with converted over to basal bolus insulin with correction. Patient was difficult to keep her blood sugars controlled. Patient was also placed on Glucophage and losartan. Hemoglobin A1c was 12.5, total cholesterol 216, LDL 135, HDL 25, triglycerides 405. Microalbumin to creatinine ratio of 33. Diagnosis: Stroke: No - Discharge Data Discharge Date: 02/17/19 Discharge Disposition: Home, Self-Care 01 Condition: Good - Discharge Diagnosis/Problem(s) (1) DKA, type 2 SNOMED Code(s): 229596148, 822691441 ICD Code: E11.10 - TYPE 2 DIABETES MELLITUS WITH KETOACIDOSIS WITHOUT COMA Status: Acute (2) Hypomagnesemia SNOMED Code(s): 960910993 ICD Code: E83.42 - HYPOMAGNESEMIA Status: Acute (3) Elevated blood pressure reading without diagnosis of hypertension SNOMED Code(s): 608194980 ICD Code: R03.0 - ELEVATED BLOOD-PRESSURE READING, W/O DIAGNOSIS OF HTN Status: Acute - Patient Summary/Data Consults: Consultations 02/16/19 08:53 Consult to Program Analyst [Consult to Diabetic Nurse Specialist] [CONS] Routine - Patient Instructions Diet: Diabetic Diet Activity: As Tolerated Driving: May Drive Today Showering/Bathing: May Shower Other/Special Instructions: Establish with PCP in the next week. - Discharge Plan *PRESCRIPTION DRUG MONITORING PROGRAM REVIEWED*: Not Applicable *COPY OF PRESCRIPTION DRUG MONITORING REPORT IN PATIENT CLARA: Not Applicable Prescriptions/Med Rec: Insulin Glarg,Human.Rec.Analog [Lantus] 15 unit SUBCUT BID #2 vial Insulin Lispro [Humalog] 5 unit SUBCUT TIDAC #2 vial Losartan [Cozaar] 100 mg PO DAILY #30 tablet metFORMIN [Glucophage] 500 mg PO BIDMEALS #60 tablet Home Medications: Home Meds Insulin Glarg,Human.Rec.Analog [Lantus] 15 unit SUBCUT BID #2 vial 02/17/19 [Rx] Insulin Lispro [Humalog] 5 unit SUBCUT TIDAC #2 vial 02/17/19 [Rx] Losartan [Cozaar] 100 mg PO DAILY #30 tablet 02/17/19 [Rx] metFORMIN [Glucophage] 500 mg PO BIDMEALS #60 tablet 02/17/19 [Rx] Oxygen Therapy Mode: Room Air Patient Handouts: Insulin Storage and Care, Type 2 Diabetes Mellitus, Diagnosis , Adult, Diabetes Mellitus and Foot Care, Diabetes Mellitus and Sick Day Management, Preventing Diabetes Mellitus Complications, Steps to Quit Smoking Forms: ED Department Discharge Referrals: Esther Delarosa [Other] - 02/19/19 9:00 am (community health educator. This appointment is for follow-up with a clinical trial educator. Bring your glucometer with to this appointment.) Annalisa Barry MD [Ordering Only Provider] - 03/09/19 2:00 pm (This appointment is for hospital follow-up and to establish care with a doctor. Bring your ID and your glucometer with to this appointment. This was the soonest appointment available at [facility].) - Discharge Summary/Plan Comment DC Time >30 min.: Yes Discharge Summary/Plan Comment: New onset Diabetic ketoacidosis * Discharged home on Lantus 30 units daily with NovoLog 5 units each meal and sliding scale. * Patient will take her blood sugars before each meal and 2 hours after each meal. * Follow-up with primary care and diabetic education. - General Info Date of Service: 02/17/19 Admission Dx/Problem (Free Text: patient states that she is feeling much better. Insulin drip was stopped last night and she was given subcutaneous Lantus. Patient is doing well taking orally now. She started Glucophage 500 mg 1 tab twice a day. She continues on sliding scale. Subjective Update: Patient states she is feeling much better. She understands how to use insulin and is referred discharge. - Patient Data Vitals - Most Recent: Last Vital Signs Temp 97.6 F 02/17/19 08:46 Pulse 94 02/17/19 08:46 Resp 18 02/17/19 08:46 BP 146/85 H 02/17/19 08:46 Pulse Ox 96 02/17/19 08:46 Weight - Most Recent: 192 lb 9.6 oz I&O - Last 24 hours: Intake & Output 02/16/19 02/17/19 02/17/19 22:59 06:59 14:59 Intake Total 1160 740 680 Balance 1160 740 680 Lab Results - Last 24 hrs: Laboratory Results - last 24 hr 02/16/19 02/16/19 02/16/19 Range/Units 05:38 05:38 16:34 WBC (3.98-10.04) K/mm3 RBC (3.98-5.22) M/mm3 Hgb (11.2-15.7) gm/L Hct (34.1-44.9) % MCV (79.4-94.8) fl MCH (25.6-32.2) pg MCHC (32.2-35.5) g/dl RDW Std Deviation (36.4-46.3) fL Plt Count (182-369) K/mm3 MPV (9.4-12.3) fl Neut % (Auto) (34.0-71.1) % Lymph % (Auto) (19.3-51.7) % [place] % (Auto) (4.7-12.5) % Eos % (Auto) (0.7-5.8) Baso % (Auto) (0.1-1.2) % Neut # (Auto) (1.56-6.13) K/mm3 Lymph # (Auto) (1.18-3.74) K/mm3 [place] # (Auto) (0.24-0.36) K/mm3 Eos # (Auto) (0.04-0.36) K/mm3 Baso # (Auto) (0.01-0.08) K/mm3 Sodium (136-145) mEq/L Potassium (3.5-5.1) mEq/L Chloride (98-107) mEq/L Carbon Dioxide (21-32) mEq/L Anion Gap (5-15) BUN (7-18) mg/dL Creatinine (0.55-1.02) mg/dL Est Cr Clr Drug Dosing mL/min Estimated GFR (MDRD) (>60) mL/min BUN/Creatinine Ratio (14-18) Glucose (74-106) mg/dL POC Glucose 368 H (70-105) mg/dL Calcium (8.5-10.1) mg/dL Magnesium (1.8-2.4) mg/dl Total Bilirubin (0.2-1.0) mg/dL AST (15-37) U/L ALT (14-59) U/L Alkaline Phosphatase (46-116) U/L Total Protein (6.4-8.2) g/dl Albumin (3.4-5.0) g/dl Globulin gm/dL Albumin/Globulin Ratio (1-2) Triglycerides (<150) mg/dL Cholesterol (<200) mg/dL LDL Cholesterol Direct (<100) mg/dL HDL Cholesterol (40-59) mg/dL Ur Random Creatinine 31.5 Cancelled (30.0-125.0) mg/dL Ur Random Microalbumin 10.5 Cancelled (1.3-20.0) mg/L Microalb/Creat Ratio 33.3 H Cancelled (0-30) mg/g 02/16/19 02/17/19 02/17/19 Range/Units 21:17 04:05 04:15 WBC 5.67 (3.98-10.04) K/mm3 RBC 4.83 (3.98-5.22) M/mm3 Hgb 14.0 D (11.2-15.7) gm/L Hct 41.4 (34.1-44.9) % MCV 85.7 (79.4-94.8) fl MCH 29.0 (25.6-32.2) pg MCHC 33.8 (32.2-35.5) g/dl RDW Std Deviation 39.5 (36.4-46.3) fL Plt Count 279 (182-369) K/mm3 MPV 10.7 (9.4-12.3) fl Neut % (Auto) 43.2 (34.0-71.1) % Lymph % (Auto) 44.1 (19.3-51.7) % [place] % (Auto) 10.1 (4.7-12.5) % Eos % (Auto) 1.9 (0.7-5.8) Baso % (Auto) 0.5 (0.1-1.2) % Neut # (Auto) 2.45 (1.56-6.13) K/mm3 Lymph # (Auto) 2.50 (1.18-3.74) K/mm3 [place] # (Auto) 0.57 H (0.24-0.36) K/mm3 Eos # (Auto) 0.11 (0.04-0.36) K/mm3 Baso # (Auto) 0.03 (0.01-0.08) K/mm3 Sodium 135 L (136-145) mEq/L Potassium 4.0 (3.5-5.1) mEq/L Chloride 101 (98-107) mEq/L Carbon Dioxide 23 (21-32) mEq/L Anion Gap 15.0 (5-15) BUN 15 (7-18) mg/dL Creatinine 0.7 (0.55-1.02) mg/dL Est Cr Clr Drug Dosing 70.36 mL/min Estimated GFR (MDRD) > 60 (>60) mL/min BUN/Creatinine Ratio 21.4 H (14-18) Glucose 331 H (74-106) mg/dL POC Glucose 344 H (70-105) mg/dL Calcium 8.8 (8.5-10.1) mg/dL Magnesium 1.9 (1.8-2.4) mg/dl Total Bilirubin 0.3 (0.2-1.0) mg/dL AST 15 (15-37) U/L ALT 27 (14-59) U/L Alkaline Phosphatase 105 (46-116) U/L Total Protein 6.0 L (6.4-8.2) g/dl Albumin 2.7 L (3.4-5.0) g/dl Globulin 3.3 gm/dL Albumin/Globulin Ratio 0.8 L (1-2) Triglycerides 405 H (<150) mg/dL Cholesterol 216 H (<200) mg/dL LDL Cholesterol Direct 135 H* (<100) mg/dL HDL Cholesterol 25.0 L (40-59) mg/dL Ur Random Creatinine (30.0-125.0) mg/dL Ur Random Microalbumin (1.3-20.0) mg/L Microalb/Creat Ratio (0-30) mg/g 02/17/19 Range/Units 06:20 WBC (3.98-10.04) K/mm3 RBC (3.98-5.22) M/mm3 Hgb (11.2-15.7) gm/L Hct (34.1-44.9) % MCV (79.4-94.8) fl MCH (25.6-32.2) pg MCHC (32.2-35.5) g/dl RDW Std Deviation (36.4-46.3) fL Plt Count (182-369) K/mm3 MPV (9.4-12.3) fl Neut % (Auto) (34.0-71.1) % Lymph % (Auto) (19.3-51.7) % [place] % (Auto) (4.7-12.5) % Eos % (Auto) (0.7-5.8) Baso % (Auto) (0.1-1.2) % Neut # (Auto) (1.56-6.13) K/mm3 Lymph # (Auto) (1.18-3.74) K/mm3 [place] # (Auto) (0.24-0.36) K/mm3 Eos # (Auto) (0.04-0.36) K/mm3 Baso # (Auto) (0.01-0.08) K/mm3 Sodium (136-145) mEq/L Potassium (3.5-5.1) mEq/L Chloride (98-107) mEq/L Carbon Dioxide (21-32) mEq/L Anion Gap (5-15) BUN (7-18) mg/dL Creatinine (0.55-1.02) mg/dL Est Cr Clr Drug Dosing mL/min Estimated GFR (MDRD) (>60) mL/min BUN/Creatinine Ratio (14-18) Glucose (74-106) mg/dL POC Glucose 312 H (70-105) mg/dL Calcium (8.5-10.1) mg/dL Magnesium (1.8-2.4) mg/dl Total Bilirubin (0.2-1.0) mg/dL AST (15-37) U/L ALT (14-59) U/L Alkaline Phosphatase (46-116) U/L Total Protein (6.4-8.2) g/dl Albumin (3.4-5.0) g/dl Globulin gm/dL Albumin/Globulin Ratio (1-2) Triglycerides (<150) mg/dL Cholesterol (<200) mg/dL LDL Cholesterol Direct (<100) mg/dL HDL Cholesterol (40-59) mg/dL Ur Random Creatinine (30.0-125.0) mg/dL Ur Random Microalbumin (1.3-20.0) mg/L Microalb/Creat Ratio (0-30) mg/g Med Orders - Current: Current Medications Enoxaparin Sodium (Lovenox) 40 mg SUBCUT DAILY [facility] Last Admin: 02/17/19 08:12 Dose: 40 mg Insulin Human Regular 100 unit (/ Sodium Chloride) 100 mls @ 4 mls/hr IV ASDIRECTED [facility]; Protocol Last Infusion: 02/15/19 20:22 Dose: 3 unit/hr, 3 mls/hr Insulin Glargine (Lantus) 15 unit SUBCUT BIDAC [facility] Insulin Glargine (Lantus) 15 unit SUBCUT BID Stop: 04/24/19 23:59 Insulin Human Lispro (Humalog) 0 unit SUBCUT QIDACANDBED [facility]; Protocol Last Admin: 02/17/19 11:23 Dose: 10 units Insulin Human Lispro (Humalog) 5 unit SUBCUT 0730,1200,1700 [facility] Last Admin: 02/17/19 11:24 Dose: 5 units Insulin Human Lispro (Humalog) 5 unit SUBCUT TIDAC Stop: 07/06/19 23:59 Losartan Potassium (Cozaar) 100 mg PO DAILY [facility] Last Admin: 02/17/19 08:10 Dose: 100 mg Metformin HCl (Glucophage) 500 mg PO BIDMEALS [facility] Last Admin: 02/17/19 08:10 Dose: 500 mg Metformin HCl (Glucophage) 500 mg PO DAILY Stop: 04/17/19 23:59 Miscellaneous Information (Remove Patch) 1 ea TRDERM DAILY [facility] Last Admin: 02/17/19 08:14 Dose: 1 ea Nicotine (Habitrol) 14 mg TRDERM DAILY [facility] Last Admin: 02/17/19 08:14 Dose: 14 mg Nicotine Polacrilex (Nicorelief) 2 mg CHEW Q2H PRN PRN Reason: Withdrawal Symptoms Discontinued Medications Sodium Chloride (Normal Saline) 1,000 mls @ 999 mls/hr IV ASDIRECTED [facility] Last Admin: 02/15/19 15:45 Dose: 999 mls/hr Sodium Chloride (Normal Saline) 1,000 mls @ 999 mls/hr IV ONETIME ONE Stop: 02/15/19 17:53 Last Admin: 02/15/19 16:56 Dose: 999 mls/hr Potassium Chloride/Dextrose/Sod Cl (D5 1/2 Ns W/ 20 Meq/L Kcl) 1,000 mls @ 125 mls/hr IV ASDIRECTED [facility] Last Admin: 02/15/19 19:25 Dose: 125 mls/hr Potassium Chloride 10 meq/ (Premix) 100 mls @ 100 mls/hr IV Q1H [facility] Stop: 02/16/19 01:59 Last Admin: 02/16/19 01:18 Dose: 100 mls/hr Sodium Chloride (Normal Saline) 1,000 mls [facility] Admin: 02/16/19 00:18 Dose: 50 mls/hr Magnesium Sulfate 4 gm/ Premix 50 mls @ 12.5 mls/hr IV ONETIME ONE Stop: 02/16/19 11:48 Last Admin: 02/16/19 08:08 Dose: 12.5 mls/hr Insulin Glargine (Lantus) 0 unit SUBCUT ONETIME ONE Stop: 02/16/19 00:21 Last Admin: 02/16/19 00:19 Dose: 30 units Insulin Glargine (Lantus) 15 unit SUBCUT Q24H [facility] Last Admin: 02/16/19 21:35 Dose: 15 units Insulin Human Lispro (Humalog) 0 unit SUBCUT ONETIME ONE; Protocol Stop: 02/16/19 00:01 Last Admin: 02/16/19 00:34 Dose: Not Given Insulin Human Lispro (Humalog) 0 unit SUBCUT ONETIME ONE; Protocol Stop: 02/16/19 02:01 Last Admin: 02/16/19 02:26 Dose: 6 units Pneumococcal Polyvalent Vaccine (Pneumovax 23) 0.5 ml IM .ONCE ONE Stop: 02/17/19 09:01 Last Admin: 02/17/19 08:12 Dose: 0.5 ml - Exam Quality Assessment: Denies: Supplemental Oxygen General: Reports: Alert, Oriented HEENT: Reports: Pupils Equal, Pupils Reactive Neck: Reports: Supple Lungs: Reports: Clear to Auscultation, Normal Respiratory Effort Cardiovascular: Reports: Regular Rate, Regular Rhythm GI/Abdominal Exam: Normal Bowel Sounds, Soft, Non-Tender, No Organomegaly, No Distention Extremities: Normal Inspection, Normal Range of Motion, Non-Tender, No Pedal Edema Skin: Reports: Warm, Dry, Intact Neurological: Reports: No New Focal Deficit Psy/Mental Status: Reports: Alert, Normal Affect, Normal Mood
[2019-02-17] MEDS ORDERED: Insulin Glarg,Human.Rec.Analog 100 UNIT/ML ML SUBCUT SCH ×2 (16:00)
== END 2019-02-17 12:42 | disposition home or self-care (01) | DRG 639 ==
LOC: JD.ED 14:44 → JD.ICU 18:02
PROVIDERS: ADMIT Pediatrics; ATTEND Pediatrics
DX: E11.10 Type 2 diabetes mellitus with ketoacidosis without coma (principal); F17.210 Nicotine dependence, cigarettes, uncomplicated; I10 Essential (primary) hypertension; E11.620 Type 2 diabetes mellitus with diabetic dermatitis; E83.42 Hypomagnesemia; Z98.51 Tubal ligation status
CPT/HCPCS: 36415; 71045; 71045-26; 80048; 80053; 80061; 81001; 82009; 82043; 82947; 82962; 83036; 83735; 83880; 83930; 84443; 84484; 85007; 85025; 85027; 86140; 90732; 93005; 93010; 96361; 96365; 99285; 99285-25; A9270-GY; J1650; J1815-GY; J3475; J3480; J7030; J7040